=== PATIENT | female | born 1985 | race Caucasian/White ===

== ENCOUNTER → 2021-01-08 12:44 | Outpatient (CLI) | payer BC, SELFPAY ==
--- NOTE | ~2021-01-08 | US_ITS ---
EXAMINATION: US thyroid DATE: 01/08/2021 13:03 INDICATION: Goiter. TECHNIQUE: Multiple ultrasound images of the thyroid were obtained. COMPARISON: Ultrasound 06/07/2014 FINDINGS: The right thyroid lobe measures 5.1 x 1.6 x 1.4 cm. The left thyroid lobe measures 5.1 x 1.5 x 1.9 c m. The thyroid is diffusely heterogeneous and hypoechoic with increased vascularity. No discrete nod ule. IMPRESSION: 1. Heterogeneous, hypervascular thyroid, consistent with chronic lymphocytic (Mando) thyroiditis. Reviewed, dictated and finalized at location A. IMPRESSION: 1. Heterogeneous, hypervascular thyroid, consistent with chronic lymphocytic (H ashimoto) thyroiditis.
== END ==
PROVIDERS: PCP Internal Medicine; Visit Provider Internal Medicine Endocrinology, Diabetes & Metabolism
DX: E04.9 Nontoxic goiter, unspecified (principal)
CPT/HCPCS: 76536